=== PATIENT | male | born 1965 | race Caucasian/White ===

== ENCOUNTER 2016-12-02 18:43 | Emergency (ER) | payer BC, OTHER, SELFPAY ==
[~2016-12-02] VITALS: Ht 172.7 cm; Wt 76.7 kg
[2016-12-02 18:44] VITALS: BP 135/66
[2016-12-02] MEDS ORDERED: IBUP-1022 PO (18:50)
[2016-12-02] MEDS ORDERED: AMOX875T PO (19:23)
[2016-12-02] MEDS ORDERED: NORCOTAB PO (19:23)
[2016-12-02] MEDS ORDERED: NORCO, ANEXSIA 5/325MG TABLET (HYDROcodone/ACETAMINOPHEN) PO ONE (19:30)
[2016-12-02] MEDS ORDERED: LIDOCAINE VISCOUS 2% SOLN 15ML UDC SSP ONE (19:30)
[2016-12-02] MEDS ORDERED: AMOXICILLIN 500 MG CAP PO ONE (19:30)
== END 2016-12-02 19:35 | disposition home or self-care (01) ==
LOC: M ED 18:43
DX: K04.7 Periapical abscess without sinus (principal); F17.200 Nicotine dependence, unspecified, uncomplicated; Z88.8 Allergy status to other drugs, medicaments and biological substances

== ENCOUNTER 2016-12-22 08:09 | Observation (INO) | payer OTHER ==
[~2016-12-22] VITALS: Ht 172.7 cm; Wt 75.7 kg
[~2016-12-22 08:09] MED LIST: AMOX875T PO; IBUP-1022 PO; NORCOTAB PO
[2016-12-22] MEDS ORDERED: ONDANSETRON 4MG/2ML VIAL (J2405) IV ONE (08:45)
[2016-12-22 09:10] LABS: BASO % 0.4 % (0.0-1.0); EOS # 0.2 K/mm3 (0.0-0.50); LARGE UNSTAINED CELL # 0.1 K/mm3 (0.0-0.4); LARGE UNSTAINED CELL % 1.4 % (0.0-4.0); LYMPH # 0.9 K/mm3 (1.5-4.5); LYMPH % 14.6 % (24.0-44.0); MEAN CORPUSCULAR HEMOGLOBIN 31.4 pg (27.0-33.0); MEAN CORPUSCULAR HGB CONC 34.8 g/dl (32.0-36.5); MEAN CORPUSCULAR VOLUME 90.3 fl (80.0-96.0); MONO # 0.5 K/mm3 (0.0-0.8); MONO % 7.5 % (0.0-5.0); NEUTROPHILS # 4.6 K/mm3 (1.8-7.7); NEUTROPHILS % 72.1 % (36.0-66.0); PLATELET COUNT, AUTOMATED 159 k/mm3 (150-450); RED CELL DISTRIBUTION WIDTH 12.3 % (11.5-14.5); WHITE BLOOD COUNT 6.4 K/mm3 (4.0-10.0)
[2016-12-22] MEDS: NS 1,000 ML IV SCH ×5 (09:12→23:57)
[2016-12-22 09:42] LABS: ALBUMIN 3.7 GM/DL (3.2-5.2); ALBUMIN/GLOBULIN RATIO 1.19 (1.00-1.93); ALKALINE PHOSPHATASE 110 U/L (45-117); ALT/SGPT 23 U/L (12-78); ANION GAP 7 MEQ/L (8-16); AST/SGOT 13 U/L (15-37); BILIRUBIN,DIRECT < 0.1 MG/DL (0.0-0.2); BILIRUBIN,TOTAL 0.2 MG/DL (0.2-1.0); BLOOD UREA NITROGEN 15 MG/DL (7-18); CALCIUM LEVEL 8.9 MG/DL (8.5-10.1); CARBON DIOXIDE LEVEL 29 MEQ/L (21-32); CHLORIDE LEVEL 107 MEQ/L (98-107); CREATININE FOR GFR 0.89 MG/DL (0.70-1.30); GLOMERULAR FILTRATION RATE > 60.0 (>56); GLUCOSE, FASTING 114 MG/DL (70-105); POTASSIUM SERUM 4.4 MEQ/L (3.5-5.1); SODIUM LEVEL 143 MEQ/L (136-145); TOTAL PROTEIN 6.8 GM/DL (6.4-8.2)
--- NOTE | 2016-12-22 10:06 | REP ---
ABDOMEN, FLAT UPRIGHT PA CHEST, THREE VIEWS: HISTORY: Abdomen pain. A small amount of air is present in small and large intestine. There are no air fluid levels or dilated loops of intestine. There is no pneumoperitoneum. The lungs are clear. IMPRESSION: Nonspecific bowel gas pattern. Signed by Ross Henriquez MD 12/22/2016 10:09 A
[2016-12-22] MEDS: MORPHINE 4 MG/ML 1ML SYRINGE IV PRN ×2 (10:39→11:28)
[2016-12-22] MEDS ORDERED: ISOVUE-370 76% 100ML VIAL (Q9967) As Ordered ONE (12:08)
--- NOTE | 2016-12-22 12:21 | REP ---
REASON: Elevated lipase. COMPARISON EXAM: None. Multiple sonographic images of the liver show the hepatic and parenchymal echo pattern to be within normal limits. There are no cystic or solid masses. There is no evidence of intrahepatic or extrahepatic ductal dilatation. The common bile duct measures between 4 and 5 mm. Multiple ultrasonographic images of the gallbladder show no gross abnormalities. There is no pericholecystic edema. There are no choleliths. There is no abnormal gallbladder wall thickening. The pancreas could not be imaged secondary to the patient's intestinal gas pattern. The imaged portion of the right kidney is within normal limits. IMPRESSION: Negative right upper quadrant ultrasound examination as described above, however, the pancreas could not be imaged due to the patient's intestinal gas pattern. If pancreatitis is a clinical concern then contrast enhanced CT examination of the abdomen and pelvis is recommended. Signed by Sam Chen DO 12/22/2016 04:57 P
--- NOTE | 2016-12-22 12:55 | REP ---
CT ABDOMEN AND PELVIS WITH IV CONTRAST: 12/22/2016. Comparison: Gallbladder ultrasound and acute abdominal series earlier this date. Clinical history: Pancreatitis. Technique: The patient had bolus of 100 mL Isovue 370 scanning through the abdomen and pelvis with coronal and sagittal reconstructions. Findings: CT abdomen: Lung bases are clear. The heart is not enlarged. There is no pericardial thickening or effusion and no hiatal hernia. The liver, spleen, gallbladder and adrenal glands were normal. Stomach with some retained fluid. Pancreas shows peripancreatic infiltration of fat along the head, neck, body and tail region. Some stranding along the anterior margin of Gerota's fascia on both sides of the abdomen. There is trace amount of thickening of the lateral coronal fascia on the right compared to left. Lung window review of all CT slices shows no perforation, abscess or free air. There is no visible calcified gallstone, common duct or pancreatic calcification. The aorta is without aneurysm. No periaortic or retroperitoneal pathologic sized lymphadenopathy. Kidneys show function without obstruction, stone, mass or cyst. Colon and small bowel loops grossly intact without dilatation or obstruction. No acute inflammatory process in the bowel. Bone windows show lumbar and lower thoracic spine without compression deformity or destructive lesion. CT pelvis: Bony pelvis, hips, sacrum, and SI joints grossly intact. Bladder without stone, mass or extrinsic mass effect. It is underfilled and wall thickness cannot be judged. A few calcifications in the prostate. Distal left colon, sigmoid and rectum intact. Small bowel loops in the pelvis intact. No inflammatory changes about bowel loops. The appendix is seen and normal. No ventral or inguinal hernia or inguinal adenopathy. Impression: 1. Evidence of diffuse inflammatory changes about the pancreas with edema in the peripancreatic fat with some small amounts of fluid tracking along the Gerota's fascia right more than left. No abscess or perforation. Mass or generalized ascites. No adenopathy. 2. Liver, spleen, kidneys, adrenal gland and bowel loops unremarkable. 3. No other significant finding. Signed by Nicholas Roque MD 12/22/2016 07:08 P
[2016-12-22] MEDS ORDERED: HYDROmorphone HCL 1 MG/ML SYRINGE (J1170) IV PRN (13:00)
--- NOTE | 2016-12-22 13:57 | HPEPDOC ---
Medical History and Physical Date of Admission 12/22/16 History and Physical ATTENDING: Dr. Mari PCP: Dr Griffin CC: Abdominal pain HPI: 51 yo M who had been in his usual state of health until this morning. He states he had sudden onset of upper abdominal discomfort which he states was severe in nature. It was achy and radiating through to his back. He denies any nausea or vomiting. No fevers or chills. No diarrhea or constipation. He states his pain has improved since receiving pain medications in the emergency department and is currently 2/10. He states he does have a poor diet, he tends to eat a lot of fried foods and greasy foods. Yesterday he had 2 whoppers from [employer]. He states over the weekend he had approximately 18 beers on Tuesday evening. He was most recently seen in the emergency department 12/02/16 related to dental abscess and was treated with amoxicillin. He states his symptoms resolved. Denies any weakness, fatigue, GREEN, CP, SOB, cough, palpitations. Upon presentation to the hospital the patient was found to have pancreatitis, thus the hospitalist team was consulted. PMHx: Tobacco use PSHX: Denies SOCHX: Resides in: [place] Marital Status: Kids: 4 Employment: guest services manager Tobacco use: One pack per day ETOH: 12-24 beers on weekends Illicit Drugs: Denies Recent travel: Denies Advanced directives: Denies FAMHX: Mother: Alive, diabetes, hypertension Father: Alive, diabetes, CAD Siblings: One brother, one half sister Alive, well Children: 3 children Alive, well. One son at 17 unknown cause. Unexpected deaths due to medical reasons: None. ROS: As noted in HPI, otherwise 11pt ROS of systems reviewed and unremarkable. PE: GEN: 51 yo M, appears stated age. Well-nourished, well developed. No acute distress. Alert and oriented x 3. Pleasant, interactive. HEENT: Normocephalic, atraumatic. Pupils are equal, round, and reactive to light. Extraocular movements are intact. No nystagmus appreciated. Sclera are nonicteric. Conjunctiva without injection. Nose midline. Nasal turbinates without bogginess. No facial asymmetry. Moist mucous membranes. Dentition fair. Pharynx pink and moist, no cobblestoning. Neck supple, trachea midline. No lymphadenopathy or thyromegaly appreciated. CHEST: Regular rate and rhythm, +S1, +S2 LUNGS: Clear to auscultation bilaterally. No wheezes, rales, or rhonchi. Breathing appears symmetric and easy. Patient is speaking in full sentences. No accessory muscle use. ABD: Flat, soft, mild tenderness in the epigastric area, non-distended. +Bowel sounds throughout. No rebound or guarding. No costovertebral angle tenderness. EXT: Pulses 2+ bilaterally dorsalis pedis and radial. No lower extremity edema appreciated. SKIN: [place], dry, warm. Capillary refill <2sec. No rashes. NEURO: Alert and oriented x 3. Cranial nerves III-XII are intact. No focal deficits appreciated. AXR: Nonspecific bowel gas pattern. GB U/S Negative right upper quadrant ultrasound examination as described above, however , the pancreas could not be imaged due to the patient's intestinal gas pattern. If pancreatitis is a clinical concern then contrast enhanced CT examination of the abdomen and pelvis is recommended. CT: A/P 1. Evidence of diffuse inflammatory changes about the pancreas with edema in the peripancreatic fat with some small amounts of fluid tracking along the Gerota's fascia right more than left. No abscess or perforation. Mass or generalized ascites. No adenopathy. 2. Liver, spleen, kidneys, adrenal gland and bowel loops unremarkable. 3. No other significant finding. Lipase 39,340 A&P: 51 yo M who had been in his usual state of health until this morning. He states he had sudden onset of upper abdominal discomfort which he states was severe in nature. It was achy and radiating through to his back. He denies any nausea or vomiting. No fevers or chills. No diarrhea or constipation. He states his pain has improved since receiving pain medications in the emergency department and is currently 07/02. 1. The patient will be admitted to / for at least [address] Mari' s service. Pt is discussed with Dr Calhoun. 2. Acute Pancreatitis. Nothing by mouth. IV fluids NS at 200 mL per hour. Pain control. IV Zofran as needed. Monitor CBC/CMP/Lipase in AM. Pt states he has not eaten today, will add Lipid profile to labs. Add LDH. [place] Criteria 0/5. 3. Tobacco use. NicoDerm patch. 4. H/O alcohol use. Pt states he usually only consumes alcohol on weekends 1-2 days. DVT prophylaxis. Lovenox SQ. The patient is a full code Vital Signs Vital Signs Date Time Temp Pulse Resp B/P (MAP) Pulse Ox O2 Delivery O2 Flow Rate FiO2 12/22/16 13:38 68 132/76 (94) 12/22/16 13:05 14 12/22/16 12:38 97 12/22/16 08:20 97.8 Room Air Laboratory Data Labs 24H Laboratory Tests 2 12/22/16 09:00: White Blood Count 6.4, Red Blood Count 5.34, Hemoglobin 16.8, Hematocrit 48.2, Mean Corpuscular Volume 90.3, Mean Corpuscular Hemoglobin 31.4, Mean Corpuscular Hemoglobin Concent 34.8, Red Cell Distribution Width 12.3, Platelet Count 159, Neutrophils (%) (Auto) 72.1H, Lymphocytes (%) (Auto) 14.6L, Monocytes (%) (Auto) 7.5H, Eosinophils (%) (Auto) 4.0H, Basophils (%) (Auto) 0.4 , Neutrophils # (Auto) 4.6, Lymphocytes # (Auto) 0.9L, Monocytes # (Auto) 0.5, Eosinophils # (Auto) 0.2, Basophils # (Auto) 0.0, Large Unclassified Cells % 1.4 , Large Unclassified Cells # 0.1, Anion Gap 7L, Glomerular Filtration Rate > 60.0, Calcium Level 8.9, Aspartate Amino Transf (AST/SGOT) 13L, Alanine Aminotransferase (ALT/SGPT) 23, Alkaline Phosphatase 110, Total Bilirubin 0.2, Direct Bilirubin < 0.1, Total Protein 6.8, Albumin 3.7, Albumin/Globulin Ratio 1.19, Lipase 50997A CBC/BMP Laboratory Tests 12/22/16 09:00 Red Blood Count 5.34, Mean Corpuscular Volume 90.3, Mean Corpuscular Hemoglobin 31.4, Mean Corpuscular Hemoglobin Concent 34.8, Red Cell Distribution Width 12.3 , Neutrophils (%) (Auto) 72.1 H, Lymphocytes (%) (Auto) 14.6 L, Monocytes (%) ( Auto) 7.5 H, Eosinophils (%) (Auto) 4.0 H, Basophils (%) (Auto) 0.4, Neutrophils # (Auto) 4.6, Lymphocytes # (Auto) 0.9 L, Monocytes # (Auto) 0.5, Eosinophils # (Auto) 0.2, Basophils # (Auto) 0.0 Home Medications No Active Prescriptions or Reported Meds Allergies Coded Allergies: Prednisone (Verified Allergy, Intermediate, hives, 12/02/16) Cece Dejesus Dec 22, 2016 13:56
[2016-12-22] MEDS ORDERED: ACETAMINOPHEN TAB 650MG DOSE (2X325MG) PO PRN (14:00)
[2016-12-22] MEDS ORDERED: MORPHINE 2 MG/ML 1ML SYRINGE IV PRN (14:00)
[2016-12-22] MEDS ORDERED: ONDANSETRON 4MG/2ML VIAL (J2405) IV PRN (14:00)
[2016-12-22] MEDS ORDERED: PERCOCET 5MG/325MG TAB PO PRN (14:00)
[2016-12-22 15:15] LABS: CHOLESTEROL LEVEL 161 MG/DL (<200); TRIGLYCERIDES LEVEL 129 MG/DL (<150)
[2016-12-22 16:00] VITALS: BP 145/85
[2016-12-22] MEDS: NICOTINE 21MG/24HR 1 EA TRANSDERMAL TD SCH (16:18)
[2016-12-22 20:00] VITALS: BP 130/71
[2016-12-23] VITALS: BP 135/72
[2016-12-23] MEDS: NS 1,000 ML IV SCH ×3 (04:57→20:34)
[2016-12-23 06:52] LABS: BASO % 0.2 % (0.0-1.0); EOS # 0.3 K/mm3 (0.0-0.50); EOS % 3.8 % (0.0-3.0); LARGE UNSTAINED CELL # 0.1 K/mm3 (0.0-0.4); LARGE UNSTAINED CELL % 1.4 % (0.0-4.0); LYMPH # 1.3 K/mm3 (1.5-4.5); LYMPH % 16.6 % (24.0-44.0); MEAN CORPUSCULAR HEMOGLOBIN 31.1 pg (27.0-33.0); MEAN CORPUSCULAR HGB CONC 34.2 g/dl (32.0-36.5); MEAN CORPUSCULAR VOLUME 90.8 fl (80.0-96.0); MONO # 0.5 K/mm3 (0.0-0.8); MONO % 7.5 % (0.0-5.0); NEUTROPHILS # 4.9 K/mm3 (1.8-7.7); NEUTROPHILS % 70.5 % (36.0-66.0); PLATELET COUNT, AUTOMATED 130 k/mm3 (150-450); RED CELL DISTRIBUTION WIDTH 12.7 % (11.5-14.5)
[2016-12-23 07:09] LABS: ALBUMIN 3.1 GM/DL (3.2-5.2); ALBUMIN/GLOBULIN RATIO 1.19 (1.00-1.93); ALKALINE PHOSPHATASE 97 U/L (45-117); ALT/SGPT 16 U/L (12-78); ANION GAP 7 MEQ/L (8-16); AST/SGOT 9 U/L (15-37); BILIRUBIN,TOTAL 0.5 MG/DL (0.2-1.0); BLOOD UREA NITROGEN 6 MG/DL (7-18); CARBON DIOXIDE LEVEL 28 MEQ/L (21-32); CHLORIDE LEVEL 110 MEQ/L (98-107); CREATININE FOR GFR 0.69 MG/DL (0.70-1.30); GLOMERULAR FILTRATION RATE > 60.0 (>56); GLUCOSE, FASTING 80 MG/DL (70-105); POTASSIUM SERUM 4.3 MEQ/L (3.5-5.1); SODIUM LEVEL 145 MEQ/L (136-145); TOTAL PROTEIN 5.7 GM/DL (6.4-8.2)
[2016-12-23 08:00] VITALS: BP 126/76
[2016-12-23] MEDS: NICOTINE 21MG/24HR 1 EA TRANSDERMAL TD SCH (08:06)
[2016-12-23] MEDS: ENOXAPARIN 40 MG/0.4 ML SYRINGE (J1650) SC SCH (08:08)
--- NOTE | 2016-12-23 14:33 | IPNPDOC ---
Date Seen The patient was seen on 12/23/16. Progress Note Hospitalist Progress Note Subjective: Patient states that he feels much better, he is not having any vomiting, and his abdominal pain is almost entirely gone. He is hungry, and interested in eating Objective: Physical Exam: Vitals: Vital Sign - Last 24 Hours 12/22/16 12/22/16 12/22/16 12/22/16 14:38 14:53 15:08 15:23 Pulse 60 62 68 60 Resp 16 B/P (MAP) 134/78 (96) 126/80 (95) 12/22/16 12/22/16 12/22/16 12/22/16 15:38 15:49 16:00 19:10 Temp 98.3 98.6 98.6 Pulse 62 62 62 Resp 14 18 18 B/P (MAP) 133/63 (86) 145/85 (105) 145/85 Pulse Ox 97 97 O2 Delivery Room Air Room Air Room Air 12/22/16 12/22/16 12/23/16 12/23/16 19:20 20:00 00:00 08:00 Temp 99.3 99.7 99.0 Pulse 68 79 85 Resp 18 20 20 18 B/P (MAP) 130/71 (90) 135/72 (93) 126/76 (93) Pulse Ox 99 98 99 O2 Delivery Room Air Room Air Room Air General: Awake, alert, no acute distress HEENT: Normal cephalic, atraumatic, extraocular movements intact CV: Regular rate and rhythm Lungs: Clear to auscultation bilaterally Abd: Soft, nondistended, only very mild tenderness to palpation in the epigastrium and right upper quadrant, normal bowel sounds Extremities: No edema Neuro: Alert and oriented 3, normal speech Psych: Normal mood and affect Labs and Imaging: Laboratory Tests 12/23/16 06:31 Red Blood Count 4.72, Mean Corpuscular Volume 90.8, Mean Corpuscular Hemoglobin 31.1, Mean Corpuscular Hemoglobin Concent 34.2, Red Cell Distribution Width 12.7 , Neutrophils (%) (Auto) 70.5 H, Lymphocytes (%) (Auto) 16.6 L, Monocytes (%) ( Auto) 7.5 H, Eosinophils (%) (Auto) 3.8 H, Basophils (%) (Auto) 0.2, Neutrophils # (Auto) 4.9, Lymphocytes # (Auto) 1.3 L, Monocytes # (Auto) 0.5, Eosinophils # (Auto) 0.3, Basophils # (Auto) 0.0, Calcium Level 8.0 L, Aspartate Amino Transf (AST/SGOT) 9 L, Alanine Aminotransferase (ALT/SGPT) 16, Alkaline Phosphatase 97, Total Bilirubin 0.5 #, Total Protein 5.7 L, Albumin 3.1 L Assessment and Plan: 51-year-old male who smokes regularly and drinks heavily on weekends who presented to the emergency department with abdominal pain and is admitted with pancreatitis. 1. Pancreatitis: The patient's LFTs are within normal limits, and a CT of the abdomen and pelvis does not indicate any gallstone. The patient also has normal triglycerides. I suspect, that this pancreatitis is secondary to his weekend binge drinking. He reports that he has somewhere between 12-24 beers on weekend days, and he reports that this past weekend was no different. The patient has been advised that he should avoid this binge drinking. He currently is nothing by mouth with high rate IV fluids, but given the improvement in his clinical condition, we will advance his diet as tolerated, and decrease his IV fluids. Continue pain control. Of note, the has requested gastroenterology consult , however, we do not have any GI coverage this week, so given the rapid improvement in the patient's clinical condition, I've advised that if they are interested in gastroenterology services, that we arrange a follow-up as an outpatient. DVT prophylaxis: Lovenox Dispo: anticipate home tomorrow if patient is able to tolerate a diet VS, I&O, 24H, James Vital Signs/I&O Vital Signs Date Time Temp Pulse Resp B/P (MAP) Pulse Ox O2 Delivery O2 Flow Rate FiO2 12/23/16 08:00 99.0 85 18 126/76 (93) 99 Room Air I&O- Last 24 Hours up to 6 AM 12/23/16 06:00 Intake Total 3350 ml Output Total 1025 ml Balance 2325 ml Laboratory Data 24H LABS Laboratory Tests 2 12/22/16 20:44: Urine Appearance CLEAR, Urine Color YELLOW, Urine pH 5.0, Urine Specific [place] 1.023, Urine Protein NEGATIVE, Urine Glucose (UA) NEGATIVE, Urine Ketones NEGATIVE, Urine Urobilinogen 0.2, Urine Bilirubin NEGATIVE, Urine Leukocyte Esterase NEGATIVE, Urine Blood NEGATIVE, Urine Nitrite NEGATIVE, Urine WBC (Auto) 0, Urine RBC (Auto) 2, Urine Hyaline Casts (Auto) 0, Urine Bacteria (Auto) NEGATIVE, Urine Squamous Epithelial Cells 0, Urine Mucus (Auto) SMALL, Urine Sperm (Auto) 12/23/16 06:31: White Blood Count 7.0, Red Blood Count 4.72, Hemoglobin 14.7#, Hematocrit 42.9, Mean Corpuscular Volume 90.8, Mean Corpuscular Hemoglobin 31.1, Mean Corpuscular Hemoglobin Concent 34.2, Red Cell Distribution Width 12.7, Platelet Count 130L, Neutrophils (%) (Auto) 70.5H, Lymphocytes (%) (Auto) 16.6L, Monocytes (%) (Auto) 7.5H, Eosinophils (%) (Auto) 3.8H, Basophils (%) (Auto) 0.2 , Neutrophils # (Auto) 4.9, Lymphocytes # (Auto) 1.3L, Monocytes # (Auto) 0.5, Eosinophils # (Auto) 0.3, Basophils # (Auto) 0.0, Large Unclassified Cells % 1.4 , Large Unclassified Cells # 0.1, Anion Gap 7L, Glomerular Filtration Rate > 60.0, Blood Urea Nitrogen 6#L, Creatinine 0.69L, Sodium Level 145, Potassium Level 4.3, Chloride Level 110H, Carbon Dioxide Level 28, Calcium Level 8.0L, Aspartate Amino Transf (AST/SGOT) 9L, Alanine Aminotransferase (ALT/SGPT) 16, Alkaline Phosphatase 97, Total Bilirubin 0.5#, Total Protein 5.7L, Albumin 3.1L , Albumin/Globulin Ratio 1.19, Lipase 4538H CBC/BMP Laboratory Tests 12/23/16 06:31 Red Blood Count 4.72, Mean Corpuscular Volume 90.8, Mean Corpuscular Hemoglobin 31.1, Mean Corpuscular Hemoglobin Concent 34.2, Red Cell Distribution Width 12.7 , Neutrophils (%) (Auto) 70.5 H, Lymphocytes (%) (Auto) 16.6 L, Monocytes (%) ( Auto) 7.5 H, Eosinophils (%) (Auto) 3.8 H, Basophils (%) (Auto) 0.2, Neutrophils # (Auto) 4.9, Lymphocytes # (Auto) 1.3 L, Monocytes # (Auto) 0.5, Eosinophils # (Auto) 0.3, Basophils # (Auto) 0.0, Calcium Level 8.0 L, Aspartate Amino Transf (AST/SGOT) 9 L, Alanine Aminotransferase (ALT/SGPT) 16, Alkaline Phosphatase 97, Total Bilirubin 0.5 #, Total Protein 5.7 L, Albumin 3.1 L DONIS WOODS Dec 23, 2016 14:33
[2016-12-23] MEDS: PERCOCET 5MG/325MG TAB PO PRN ×2 (15:09→20:34)
[2016-12-23 16:00] VITALS: BP 126/72
[2016-12-23 20:00] VITALS: BP 127/72
[2016-12-24] VITALS: BP 104/56
[2016-12-24] MEDS: NS 1,000 ML IV SCH (07:11)
[2016-12-24 08:00] VITALS: BP 120/77
[2016-12-24] MEDS: NICOTINE 21MG/24HR 1 EA TRANSDERMAL TD SCH (08:28)
[2016-12-24 08:29] LABS: BASO % 0.5 % (0.0-1.0); EOS # 0.4 K/mm3 (0.0-0.50); EOS % 6.1 % (0.0-3.0); LARGE UNSTAINED CELL # 0.1 K/mm3 (0.0-0.4); LARGE UNSTAINED CELL % 1.6 % (0.0-4.0); LYMPH # 1.2 K/mm3 (1.5-4.5); LYMPH % 19.1 % (24.0-44.0); MEAN CORPUSCULAR HEMOGLOBIN 30.2 pg (27.0-33.0); MEAN CORPUSCULAR HGB CONC 33.4 g/dl (32.0-36.5); MEAN CORPUSCULAR VOLUME 90.5 fl (80.0-96.0); MONO # 0.5 K/mm3 (0.0-0.8); MONO % 7.6 % (0.0-5.0); NEUTROPHILS # 3.8 K/mm3 (1.8-7.7); NEUTROPHILS % 65.1 % (36.0-66.0); PLATELET COUNT, AUTOMATED 157 k/mm3 (150-450); RED CELL DISTRIBUTION WIDTH 12.6 % (11.5-14.5); WHITE BLOOD COUNT 5.8 K/mm3 (4.0-10.0)
[2016-12-24] MEDS: ENOXAPARIN 40 MG/0.4 ML SYRINGE (J1650) SC SCH (08:30)
[2016-12-24 08:43] LABS: ALBUMIN/GLOBULIN RATIO 1.03 (1.00-1.93); ALKALINE PHOSPHATASE 90 U/L (45-117); ALT/SGPT 17 U/L (12-78); ANION GAP 8 MEQ/L (8-16); AST/SGOT 11 U/L (15-37); BILIRUBIN,TOTAL 0.4 MG/DL (0.2-1.0); BLOOD UREA NITROGEN 6 MG/DL (7-18); CALCIUM LEVEL 8.6 MG/DL (8.5-10.1); CARBON DIOXIDE LEVEL 28 MEQ/L (21-32); CHLORIDE LEVEL 109 MEQ/L (98-107); CREATININE FOR GFR 0.71 MG/DL (0.70-1.30); GLOMERULAR FILTRATION RATE > 60.0 (>56); GLUCOSE, FASTING 91 MG/DL (70-105); MAGNESIUM LEVEL 2.2 MG/DL (1.8-2.4); POTASSIUM SERUM 4.2 MEQ/L (3.5-5.1); SODIUM LEVEL 145 MEQ/L (136-145); TOTAL PROTEIN 5.9 GM/DL (6.4-8.2)
[2016-12-24] MEDS: PERCOCET 5MG/325MG TAB PO PRN (12:35)
[2016-12-24] MEDS ORDERED: NICO21PAT TD (13:47)
--- NOTE | 2016-12-25 14:25 | DS.PDOC ---
Discharge Summary General Date of Admission Dec 22, 2016 at 14:36 Date of Discharge 12/24/2016 Discharge Summary DISCHARGE SUMMARY DATE OF ADMISSION: 12/22/2016 DATE OF DISCHARGE: 12/24/2016 PRIMARY CARE PHYSICIAN: Dr. Griffin DISCHARGE DIAGNOS(E)S: Acute alcoholic pancreatitis Tobacco abuse HPI & HOSPITAL COURSE: 51-year-old male who smokes regularly and drinks heavily on weekends who presented to the emergency department with abdominal pain and is admitted with pancreatitis. 1. Pancreatitis: The patient's LFTs are within normal limits, and a CT of the abdomen and pelvis does not indicate any gallstone. The patient also has normal triglycerides. I suspect, that this pancreatitis is secondary to his weekend binge drinking. He reports that he has somewhere between 12-24 beers on weekend days, and he reports that this past weekend was no different. The patient has been advised that he should avoid this binge drinking. With traditional treatment, he improved clinically and was pain free and tolerating a diet on the day of discharge. Of note, the has requested gastroenterology consult, however, we do not have any GI coverage this week, so given the rapid improvement in the patient's clinical condition, I have offered that if they are interested in gastroenterology services, that we arrange a follow-up as an outpatient. 2. Tobacco abuse: The patient was counseled on tobacco cessation; he has requested nicotine patches at discharge, which we are happy to prescribe to him. DVT prophylaxis: Lovenox PHYSICAL EXAMINATION ON DISCHARGE: VITAL SIGNS: Vital Signs Date Time Temp Pulse Resp B/P (MAP) Pulse Ox O2 Delivery O2 Flow Rate FiO2 12/24/16 13:05 16 12/24/16 08:00 98.7 55 120/77 (91) 97 Room Air General: Awake, alert, no acute distress HEENT: Normal cephalic, atraumatic, extraocular movements intact CV: Regular rate and rhythm Lungs: Clear to auscultation bilaterally Abd: Soft, nondistended, no TTP, normal bowel sounds Extremities: No edema Neuro: Alert and oriented 3, normal speech Psych: Normal mood and affect DISPOSITION: Home DISCHARGE INSTRUCTIONS: PCP Dr. Griffin within 1 week. Do not drink any alcohol. At the patient's request, we have referred him to Dr. Espinal of gastroenterology for an outpatient follow-up. If symptoms return, or if you experience worsening of your symptoms, please call your doctor or return to the emergency department. ITEMS THAT NEED OUTPATIENT FOLLOWUP: None Patient was seen and examined by me on the day of discharge, and I spent a total time of less than 30 minutes on this discharge. Vital Signs/I&Os Vital Signs Date Time Temp Pulse Resp B/P (MAP) Pulse Ox O2 Delivery O2 Flow Rate FiO2 12/24/16 13:05 16 12/24/16 08:00 98.7 55 120/77 (91) 97 Room Air I&O- Last 24 Hours up to 6 AM 12/25/16 06:00 Intake Total 120 ml Output Total 950 ml Balance -830 ml Discharge Medications Scheduled Nicotine (Nicotine Transdermal Syst) 21 Mg/24 Hr Dis, 1 PATCH TD DAILY Allergies Coded Allergies: Prednisone (Verified Allergy, Intermediate, hives, 12/02/16) DONIS WOODS Dec 25, 2016 14:25
== END 2016-12-24 15:00 | disposition home or self-care (01) ==
LOC: M ED 08:09 → M ED INP 14:36 → M PED 16:05
PROVIDERS: ADMIT Internal Medicine; ATTEND Hospitalist
DX: K85.20 Alcohol induced acute pancreatitis without necrosis or infection (principal); Z72.0 Tobacco use; R10.10 Upper abdominal pain, unspecified; Z88.8 Allergy status to other drugs, medicaments and biological substances
CPT/HCPCS: 36415; 74022; 74177; 76705; 80048; 80053; 80061; 80076; 81001; 83690; 83735; 85025; 93041; 96361; 96374; 96375; 96376; 99285; J1170; J2405; Q9967

== ENCOUNTER 2019-07-04 01:53 | Inpatient (IN) | payer OTHER, SELFPAY ==
[~2019-07-04] VITALS: Ht 172.7 cm; Wt 81.0 kg
[~2019-07-04 01:53] MED LIST changes: +HYDR-3715 PO; +NICO21PAT TD; -NORCOTAB PO
[2019-07-04 02:35] LABS: HEMATOCRIT 48.9 % (42.0-52.0); HEMOGLOBIN 15.8 g/dl (13.5-17.5); MEAN CORPUSCULAR HEMOGLOBIN 29.5 pg (27.0-33.0); MEAN CORPUSCULAR HGB CONC 32.3 g/dl (32.0-36.5); MEAN CORPUSCULAR VOLUME 91.2 fl (80.0-96.0); PLATELET COUNT, AUTOMATED 167 10^3/uL (150-450); RED BLOOD COUNT 5.36 10^6/uL (4.30-6.10); WHITE BLOOD COUNT 8.6 10^3/uL (4.0-10.0)
[2019-07-04 03:17] LABS: ALBUMIN 3.9 GM/DL (3.2-5.2); ALT/SGPT 36 U/L (12-78); BILIRUBIN,TOTAL 0.3 MG/DL (0.2-1.0); BLOOD UREA NITROGEN 14 MG/DL (7-18); CALCIUM LEVEL 9.1 MG/DL (8.5-10.1); CARBON DIOXIDE LEVEL 29 MEQ/L (21-32); CHLORIDE LEVEL 106 MEQ/L (98-107); CK-MB VALUE MASS 1.4 NG/ML (<3.6); CPK CREATINE PHOSPHOKINASE 93 U/L (39-308); CREATININE FOR GFR 1.04 MG/DL (0.70-1.30); GLOMERULAR FILTRATION RATE > 60.0 (>56); GLUCOSE, FASTING 107 MG/DL (70-100); MB/CK RELATIVE INDEX 1.51 (< OR =4); SODIUM LEVEL 142 MEQ/L (136-145); TOTAL PROTEIN 6.9 GM/DL (6.4-8.2); TROPONIN I < 0.02 NG/ML (< 0.10)
[2019-07-04 03:35] LABS: LIPASE 41409 U/L (73-393)
[2019-07-04] MEDS ORDERED: NS 1,000 ML IV ONE (04:00)
[2019-07-04] MEDS ORDERED: ONDANSETRON 4MG/2ML VIAL (J2405) IV ONE (04:00)
[2019-07-04] MEDS ORDERED: KETOROLAC 30 MG/ML VIAL (J1885) IV ONE (04:00)
[2019-07-04] MEDS ORDERED: ISOVUE-370 76% 100ML VIAL (Q9967) As Ordered ONE (04:02)
--- NOTE | 2019-07-04 04:50 | REPVR ---
PROCEDURE INFORMATION: Exam: CT Abdomen And Pelvis With Contrast Exam date and time: 07/04/2019 3:58 AM Age: 54 years old Clinical indication: Abdominal pain; Generalized; Additional info: Gen abd pain TECHNIQUE: Imaging protocol: Computed tomography of the abdomen and pelvis with intravenous contrast. Radiation optimization: All CT scans at this facility use at least one of these dose optimization techniques: automated exposure control; mA and/or kV adjustment per patient size (includes targeted exams where dose is matched to clinical indication); or iterative reconstruction. Contrast material: ISO; Contrast volume: 100 ml; Contrast route: AC; COMPARISON: CT ABD/PEL W/IV CONTRAST ONLY 12/22/2016 12:09 PM FINDINGS: Liver: Normal. No mass. Gallbladder and bile ducts: Normal. No calcified stones. No ductal dilation. Pancreas: Mild peripancreatic edema. No pancreatic necrosis. No pancreatic ductal dilatation. No pseudocyst. Spleen: Normal. No splenomegaly. Adrenals: Normal. No mass. Kidneys and ureters: Normal. No hydronephrosis. Stomach and bowel: Unremarkable. No obstruction. No mucosal thickening. Appendix: Appendix is normal. Intraperitoneal space: Unremarkable. No free air. No significant fluid collection. Vasculature: Mild atherosclerotic disease. No aortic aneurysm. Lymph nodes: Unremarkable. No enlarged lymph nodes. Bladder: Unremarkable as visualized. Reproductive: Prostate is mildly enlarged. Bones/joints: Unremarkable. No acute fracture. Soft tissues: Small umbilical hernia containing fat. There is no evidence of strangulation. IMPRESSION: 1. Mild peripancreatic edema. Consistent with acute pancreatitis. 2. Additional findings as described. Electronically signed by: Luis Baumann On 07/04/2019 04:50:05 AM
[2019-07-04] MEDS ORDERED: MORPHINE 4 MG/ML 1ML VIAL/SYRINGE (J2270) As Ordered ONE (05:10)
[2019-07-04] MEDS ORDERED: MORPHINE 4 MG/ML 1ML VIAL/SYRINGE (J2270) IV ONE (05:15)
[2019-07-04] MEDS ORDERED: LR 1,000 ML IV SCH (05:19)
[2019-07-04] MEDS ORDERED: ONDANSETRON 4MG/2ML VIAL (J2405) IV PRN ×2 (05:30→17:00)
[2019-07-04] MEDS ORDERED: KETOROLAC 30 MG/ML VIAL (J1885) IV PRN (05:30)
--- NOTE | 2019-07-04 05:31 | HPEPDOC ---
General Date of Admission 07/04/19 Date of Service: Jul 04, 2019 Chief Complaint The patient is a 54-year-old male admitted with a reason for visit of Abd Pain. Source: Patient Exam Limitations: No limitations Timing/Duration: 4-6 hours Severity: Severe History of Present Illness Patient is 54 years old male with history of previous acute pancreatitis presented hospital with epigastric and left upper quadrant pain. Patient stated that around 4-5 hours ago he developed severe left upper and epigastric pain associated with nausea. Patient denied any recent alcohol intake. In emergency room patient was found to have lipase level around 41,000. CT abdomen and pelvis showed Mild peripancreatic edema. Consistent with acute pancreatitis. No common bile duct dilatation. Patient denied fever, but has chills. Patient denies palpitations, chest pain, diarrhea or dysuria Home Medications No Active Prescriptions or Reported Meds Allergies Coded Allergies: prednisone (Verified Allergy, Unknown, 07/04/19) Past Medical History Medical History Acute pancreatitis Family History Mother had hypertension and diabetes Social History * Smoker: greater than 1 pack/day Alcohol: occationally Drugs: denies, marijuana (daily) A-FIB/CHADSVASC A-FIB History Current/History of A-Fib/PAF?: No Current PO Anticoag Therapy: No Review of Systems Constitutional: Reports: Chills, Malaise; Denies: Fever Eyes: Denies: Pain ENT: Denies: Head Aches Skin: Denies: Rash, Lesions Pulmonary: Denies: Dyspnea, Cough Cardiovascular: Denies: Chest Pain Gastrointestinal: Reports: Nausea, Abdominal Pain Genitourinary: Denies: Dysuria Hematologic: Denies: Bruising Endocrine: Denies: Polydipsia, Polyphagia Musculoskeletal: Denies: Neck Pain Neurological: Denies: Weakness, Numbness Psych: Reports: Mood Normal Physical Examination General Exam: Positive: Alert Eye Exam: Positive: PERRLA ENT Exam: Positive: Atraumatic Neck Exam: Positive: Supple; Negative: JVD Chest Exam: Positive: Clear to auscultation Heart Exam: Positive: Rate Normal Telemetry: Positive: No significant arrhythmia Abdomen Exam: Positive: BS Hypoactive, Tenderness (epigastric and left upper quadrant tenderness); Negative: Normal bowel sounds Extremity Exam: Negative: Clubbing, Cyanosis Skin Exam: Positive: Nl turgor and temperature Neuro Exam: Positive: Strength at 5/5 X4 ext, Cranial Nerves 3-12 NL Psych Exam: Positive: Mental status NL Vital Signs Vital Signs Date Time Temp Pulse Resp B/P (MAP) Pulse Ox O2 Delivery O2 Flow Rate FiO2 07/04/19 05:13 16 Room Air 07/04/19 03:33 07/04/19 01:53 97.7 71 99 Laboratory Data Labs 24H Laboratory Tests 2 07/04/19 02:17: Nucleated Red Blood Cells % (auto) 0.0, Anion Gap 7L, Glomerular Filtration Rate > 60.0, Calcium Level 9.1, Total Bilirubin 0.3, Aspartate Amino Transf (AST/SGOT) 17, Alanine Aminotransferase (ALT/SGPT) 36, Alkaline Phosphatase 104, Total Creatine Kinase 93, Creatine Kinase MB 1.4, Creatine Kinase MB Relative Index 1.51, Troponin I < 0.02, Total Protein 6.9, Albumin 3.9, Albumin/Globulin Ratio 1.30, Lipase 42375A CBC/BMP Laboratory Tests 07/04/19 02:17 Assessment/Plan Patient is 54 years old male with history of previous acute pancreatitis presented hospital with epigastric and left upper quadrant pain. Patient stated that around 4-5 hours ago he developed severe left upper and epigastric pain associated with nausea. Patient denied any recent alcohol intake. In emergency room patient was found to have lipase level around 41,000. CT abdomen and pelvis showed Mild peripancreatic edema. Consistent with acute pancreatitis Problems (1) Acute pancreatitis Status: Acute Problem Text: Patient denied any recent alcohol intake Most likely idiopathic We will check level of TG, calcium, IgG4,KADEN Will check U tox for alcohol Aggressive IV hydration Nothing by mouth for now Pain management LORI ALEXIS DO Jul 04, 2019 05:31
[2019-07-04 06:11] LABS: CHOLESTEROL LEVEL 199 MG/DL (<200); CHOLESTEROL RISK RATIO 6.633 (<5); HDL CHOLESTEROL 30 MG/DL (>40); LDL CHOLESTEROL 111 MG/DL (<100); NON-HDL-C 169 MG/DL; TRIGLYCERIDES LEVEL 292 MG/DL (<150)
[2019-07-04 06:17] VITALS: BP 150/68
[2019-07-04] MEDS: PANTOPRAZOLE 40MG INJ (PROTONIX) (C9113) IV SCH (08:44)
[2019-07-04] MEDS: MORPHINE 2 MG/ML 1ML VIAL (J2270) IV SCH ×4 (08:44→20:21)
[2019-07-04] MEDS ORDERED: MORPHINE 2 MG/ML 1ML VIAL (J2270) IV SCH (09:00)
[2019-07-04] MEDS ORDERED: D5W/0.45% SODIUM CHLORIDE 1,000 ML IV SCH (09:51)
[2019-07-04] MEDS ORDERED: D5W/0.9% SODIUM CHLORIDE 1,000 ML IV SCH (09:51)
[2019-07-04] MEDS ORDERED: D5W 1,000 ML IV SCH (09:51)
[2019-07-04] MEDS: NS 1,000 ML IV SCH ×2 (10:24→21:58)
[2019-07-04] MEDS: ACETAMINOPHEN TAB 650MG DOSE (2X325MG) PO PRN (14:11)
--- NOTE | 2019-07-04 16:37 | IPNPDOC ---
Subjective Date Seen The patient was seen on 07/04/19. Subjective Chief Complaint/HPI Mr. Sanders is a 54 year old male who is admitted to the hospital due to acute pancreatitis. Pt has denied any recent precipitating events - including alcohol consumption. Pt stated that the only thing he has done out of the ordinary is have nachos. Pt stated he does not have a PCP or GI doctor; he has not had a medical provider for several years. Pt stated he is willing to be referred to a PCP on d/c. Mr. Sanders stated that he is much more comfortable today than yesterday. He has some mild upper abdominal pain, no nausea and vomiting. General: Denies: Chills, Night Sweats, Fatigue, Malaise, Normal Appetite Constitutional: Denies: Chills, Fever, Night Sweats Eyes: Denies: Pain ENT: Denies: Head Aches Skin: Reports: Lesions; Denies: Rash, Breakdown Pulmonary: Denies: Dyspnea, Cough Cardiovascular: Denies: Chest Pain, Palpitations, Orthopnea, Paroxysmal Noc. Dyspnea, Lt Headedness Gastrointestinal: Reports: Abdominal Pain; Denies: Nausea, Vomiting, Diarrhea, Constipation Genitourinary: Denies: Dysuria, Retention Hematologic: Denies: Bruising Musculoskeletal: Denies: Neck Pain, Back Pain, Joint Pain, Muscle Pain, Spasms Neurological: Denies: Weakness, Numbness, Change in speech, Confusion Psych: Reports: Mood Normal Objective Physical Examination General Exam: Positive: Alert, Cooperative, No Acute Distress Eye Exam: Positive: Conjunctiva & lids normal, EOMI; Negative: Sclera icteric ENT Exam: Positive: Atraumatic, Pharynx Normal, Tongue Midline; Negative: Mucous membr. moist/pink (mucus membranes dry) Neck Exam: Positive: Supple; Negative: JVD, thyromegaly Chest Exam: Positive: Clear to auscultation, Normal air movement Heart Exam: Positive: Rate Normal, Regular Rhythm, Normal S1, Normal S2; Negative: Gallops, Murmurs, Rubs Telemetry: Positive: No significant arrhythmia Abdomen Exam: Positive: BS Hypoactive, Soft, Tenderness (TTP RLQ no guarding ); Negative: Normal bowel sounds Extremity Exam: Negative: Clubbing, Cyanosis, Edema Skin Exam: Positive: Nl turgor and temperature Neuro Exam: Positive: Normal Speech Psych Exam: Positive: Mental status NL, Oriented x 3 Assessment /Plan Assessment Mr. Sanders is a 54 year old male who presented to the ED with epigastric and LUQ abdominal pain and nausea. Pt has a PMHx which includes: Pancreatitis. Pt denied any precipitating events - alcohol consumption, medication etc. Pt stated the only thing he did out of the ordinary was consume some homemade nachos. Pt had a lipase of 41,[address] ABD/PEL W/IV CONTRAST ONLY IMPRESSION: 1. Mild peripancreatic edema. Consistent with acute pancreatitis. 2. Additional findings as described. Acute pancreatitis - does not meet SIRS criteria; temp, HR, RR, WBC count WNL - IG4 and KADEN, Lactic Acid - pending - urine tox not completed. Will not re-order as pt has received aggressive fluid hydration and results will likely be unreliable. - Pain has improved significantly overnight, assessed x 2 today; reduce Morphine to 2mg q4hr, continue Toradol prn - Previously made NPO; advance with clear fluids if tolerated DVT Prophy: Heparin SQ Dispo: d/c home within 24-48 hrs with referral to establish care with PCP Plan/VTE VTE Prophylaxis Ordered?: Yes (Heparin ) VS, I&O, 24H, Fishbone Vital Signs/I&O Vital Signs Date Time Temp Pulse Resp B/P (MAP) Pulse Ox O2 Delivery O2 Flow Rate FiO2 07/04/19 13:15 16 Room Air 07/04/19 06:17 98.2 71 150/68 (95) 96 I&O- Last 24 Hours up to 6 AM 07/04/19 06:00 Intake Total 1000 ml Balance 1000 ml Laboratory Data 24H LABS Laboratory Tests 2 07/04/19 02:17: Nucleated Red Blood Cells % (auto) 0.0, Anion Gap 7L, Glomerular Filtration Rate > 60.0, Calcium Level 9.1, Total Bilirubin 0.3, Aspartate Amino Transf (AST/SGOT) 17, Alanine Aminotransferase (ALT/SGPT) 36, Alkaline Phosphatase 104, Total Creatine Kinase 93, Creatine Kinase MB 1.4, Creatine Kinase MB Relative Index 1.51, Troponin I < 0.02, Total Protein 6.9, Albumin 3.9, Albumin/Globulin Ratio 1.30, Triglycerides Level 292H, Total Cholesterol 199, LDL Cholesterol 111H, Non-HDL Cholesterol (LDL + VLDL) 169, Total HDL Cholesterol 30L, Cholesterol/HDL Ratio 6.633H, Lipase 10558I 07/04/19 08:05: CBC/BMP Laboratory Tests 07/04/19 02:17 MALIA SHETTY PA-C Jul 04, 2019 16:37
--- NOTE | 2019-07-04 20:07 | ECGEPIP ---
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
[2019-07-04] MEDS: HEPARIN SOD (PORCINE) 5000 UNITS/ML VIAL (J1644 PER 1000UNITS) SQ SCH (20:20)
[2019-07-04 22:00] VITALS: BP 118/67
[2019-07-05] MEDS: MORPHINE 2 MG/ML 1ML VIAL (J2270) IV SCH ×6 (01:56→20:37)
[2019-07-05 06:00] VITALS: BP 106/70
[2019-07-05] MEDS: ACETAMINOPHEN TAB 650MG DOSE (2X325MG) PO PRN (06:12)
[2019-07-05 06:18] LABS: BASO % 0.2 % (0.0-1.0); EOS # 0.3 10^3/uL (0.0-0.5); EOS % 3.6 % (0.0-3.0); HEMATOCRIT 41.5 % (42.0-52.0); LYMPH # 1.2 10^3/uL (1.5-5.0); LYMPH % 14.7 % (24.0-44.0); MEAN CORPUSCULAR HEMOGLOBIN 30.6 pg (27.0-33.0); MEAN CORPUSCULAR VOLUME 92.6 fl (80.0-96.0); MONO # 0.8 10^3/uL (0.0-0.8); MONO % 10.1 % (0.0-5.0); NEUTROPHILS # 5.8 10^3/uL (1.5-8.5); NEUTROPHILS % 71.2 % (36.0-66.0); PLATELET COUNT, AUTOMATED 126 10^3/uL (150-450); RED BLOOD COUNT 4.48 10^6/uL (4.30-6.10); WHITE BLOOD COUNT 8.1 10^3/uL (4.0-10.0)
[2019-07-05 06:27] LABS: HEMOGLOBIN 13.7 g/dl (13.5-17.5)
[2019-07-05 06:48] LABS: BLOOD UREA NITROGEN 8 MG/DL (7-18); CALCIUM LEVEL 8.1 MG/DL (8.5-10.1); CARBON DIOXIDE LEVEL 28 MEQ/L (21-32); CHLORIDE LEVEL 110 MEQ/L (98-107); CREATININE FOR GFR 0.85 MG/DL (0.70-1.30); GLOMERULAR FILTRATION RATE > 60.0 (>56); GLUCOSE, FASTING 86 MG/DL (70-100); LIPASE 3460 U/L (73-393); SODIUM LEVEL 143 MEQ/L (136-145)
[2019-07-05] MEDS: HEPARIN SOD (PORCINE) 5000 UNITS/ML VIAL (J1644 PER 1000UNITS) SQ SCH ×3 (08:53→20:38)
[2019-07-05] MEDS: PANTOPRAZOLE 40MG INJ (PROTONIX) (C9113) IV SCH (08:53)
[2019-07-05] MEDS ORDERED: NICOTINE 21MG/24HR 1 EA TRANSDERMAL TD SCH (09:00)
[2019-07-05 14:00] VITALS: BP 130/68
--- NOTE | 2019-07-05 14:04 | IPNPDOC ---
Text Note Date of Service The patient was seen on 07/05/19. NOTE Subjective Chief Complaint/HPI Mr. Sanders is a 54 year old male who is admitted to the hospital due to acute pancreatitis. Pt has denied any recent precipitating events - including alcohol consumption. Pt stated that the only thing he has done out of the ordinary is have nachos. His first episode was 2.5 years ago; Sx typically resolve more quickly than they have this time. Pt stated he does not have a PCP or GI doctor; he has not had a medical provider for several years. Pt stated he is willing to be referred to a PCP on d/c. Mr. Sanders has continued to improve. He has tolerated clear fluids without abd. pain/N/V. General: Denies: Chills, Night Sweats, Fatigue, Malaise, Normal Appetite Constitutional: Denies: Chills, Fever, Night Sweats Eyes: Denies: Pain ENT: Denies: Head Aches Skin: Reports: Lesions; Denies: Rash, Breakdown Pulmonary: Denies: Dyspnea, Cough Cardiovascular: Denies: Chest Pain, Palpitations, Orthopnea, Paroxysmal Noc. Dyspnea, Lt Headedness Gastrointestinal: Reports: Abdominal Pain; Denies: Nausea, Vomiting, Diarrhea, Constipation Genitourinary: Denies: Dysuria, Retention Hematologic: Denies: Bruising Musculoskeletal: Denies: Neck Pain, Back Pain, Joint Pain, Muscle Pain, Spasms Neurological: Denies: Weakness, Numbness, Change in speech, Confusion Psych: Reports: Mood Normal Objective Physical Examination General Exam: Positive: Alert, Cooperative, No Acute Distress Eye Exam: Positive: Conjunctiva & lids normal, EOMI; Negative: Sclera icteric ENT Exam: Positive: Atraumatic, Pharynx Normal, Tongue Midline; Neck Exam: Positive: Supple; Negative: JVD, thyromegaly Chest Exam: Positive: Clear to auscultation, Normal air movement Heart Exam: Positive: Rate Normal, Regular Rhythm, Normal S1, Normal S2; Negative: Gallops, Murmurs, Rubs Telemetry: Positive: No significant arrhythmia Abdomen Exam: Positive: BS Hypoactive, Soft, Tenderness (TTP RLQ); Negative: Normal bowel sounds Extremity Exam: Negative: Clubbing, Cyanosis, Edema Skin Exam: Positive: Nl turgor and temperature Neuro Exam: Positive: Normal Speech Psych Exam: Positive: Mental status NL, Oriented x 3 Assessment /Plan Assessment Mr. Sanders is a 54 year old male who presented to the ED with epigastric and LUQ abdominal pain and nausea. Pt has a PMHx which includes: Pancreatitis. Pt denied any precipitating events - alcohol consumption, medication etc. Pt stated the only thing he did out of the ordinary was consume some homemade nachos. Pt had a lipase of 41,[address] ABD/PEL W/IV CONTRAST ONLY IMPRESSION: 1. Mild peripancreatic edema. Consistent with acute pancreatitis. 2. Additional findings as described. Acute pancreatitis - does not meet SIRS criteria; temp, HR, RR, WBC count WNL - IG4 and KADEN, Lactic Acid - pending - urine tox not completed. Will not re-order as pt has received aggressive fluid hydration and results will likely be unreliable. - Lipase 41,490-3460 overnight - Pain has improved significantly overnight; Morphine reduced, continue Toradol prn - Advance with full fluids and then soft diet as tolerated DVT Prophy: Heparin SQ Dispo: d/c home within 24-48 hrs with referral to establish care with PCP who will refer the pt to GI. Pt stated his barrier to care is financial; he has received some information from the hospital about the insurance marketplace and plans to look into it. VS,Fishbone, I+O VS, Fishbone, I+O Laboratory Tests 07/05/19 05:19 Vital Signs Date Time Temp Pulse Resp B/P (MAP) Pulse Ox O2 Delivery O2 Flow Rate FiO2 07/05/19 09:17 18 Room Air 07/05/19 06:00 99.4 74 106/70 (82) 95 I&O- Last 24 Hours up to 6 AM 07/05/19 06:00 Intake Total 3581 ml Output Total 550 ml Balance 3031 ml MALIA SHETTY PA-C Jul 05, 2019 14:03
[2019-07-05 22:00] VITALS: BP 149/54
[2019-07-06 00:07] LABS: ANTINUCLEAR ANTIBODIES DIRECT Negative (Negative)
[2019-07-06] MEDS: MORPHINE 2 MG/ML 1ML VIAL (J2270) IV SCH ×2 (01:00→05:00)
[2019-07-06 06:00] VITALS: BP 127/68
[2019-07-06 06:07] LABS: BASO % 0.5 % (0.0-1.0); EOS # 0.5 10^3/uL (0.0-0.5); EOS % 5.7 % (0.0-3.0); HEMATOCRIT 42.3 % (42.0-52.0); LYMPH # 1.1 10^3/uL (1.5-5.0); LYMPH % 13.3 % (24.0-44.0); MEAN CORPUSCULAR HEMOGLOBIN 30.2 pg (27.0-33.0); MEAN CORPUSCULAR HGB CONC 33.1 g/dl (32.0-36.5); MEAN CORPUSCULAR VOLUME 91.4 fl (80.0-96.0); MONO % 11.6 % (0.0-5.0); NEUTROPHILS # 5.6 10^3/uL (1.5-8.5); NEUTROPHILS % 68.5 % (36.0-66.0); PLATELET COUNT, AUTOMATED 137 10^3/uL (150-450); RED BLOOD COUNT 4.63 10^6/uL (4.30-6.10); WHITE BLOOD COUNT 8.2 10^3/uL (4.0-10.0)
[2019-07-06 06:28] LABS: BLOOD UREA NITROGEN 6 MG/DL (7-18); CALCIUM LEVEL 8.4 MG/DL (8.5-10.1); CARBON DIOXIDE LEVEL 30 MEQ/L (21-32); CHLORIDE LEVEL 108 MEQ/L (98-107); CREATININE FOR GFR 0.83 MG/DL (0.70-1.30); GLOMERULAR FILTRATION RATE > 60.0 (>56); GLUCOSE, FASTING 95 MG/DL (70-100); LIPASE 478 U/L (73-393); POTASSIUM SERUM 3.9 MEQ/L (3.5-5.1); SODIUM LEVEL 142 MEQ/L (136-145)
[2019-07-06] MEDS ORDERED: OXYC1TAB23 PO (07:48)
[2019-07-06] MEDS ORDERED: PANT40TA3 PO (07:48)
--- NOTE | 2019-07-08 07:10 | DS.PDOC ---
Discharge Summary General Date of Admission Jul 04, 2019 at 05:19 Date of Discharge 07/06/19 Discharge Summary PROCEDURES PERFORMED DURING STAY: [None]. DISCHARGE DIAGNOSES: Acute pancreatitis second episode etiology yet undetermined. COMPLICATIONS/CHIEF COMPLAINT: Acute Pancreatitis. HISTORY OF PRESENT ILLNESS: See History and physical HOSPITAL COURSE: Assessment /Plan Assessment Mr. Sanders is a 54 year old male who presented to the ED with epigastric and LUQ abdominal pain and nausea. Pt has a PMHx which includes: Pancreatitis. Pt denied any precipitating events - alcohol consumption, medication etc. Pt stated the only thing he did out of the ordinary was consume some homemade nachos. Pt had a lipase of 41,[address] ABD/PEL W/IV CONTRAST ONLY IMPRESSION: 1. Mild peripancreatic edema. Consistent with acute pancreatitis. 2. Additional findings as described. Acute pancreatitis No history of significant alcohol intake, no gallstones, no recent features of viral infections Not on any prescription medication or erbal or finnish medications . no on any over the counter medications. IG4 and KADEN, negative, triglecerides not elevated. Will probably need ERCP to look into spincter of oddi Referral to Gi given. tolerating diet pain controlled with percocet. DISCHARGE MEDICATIONS: Please see below. ALLERGIES: Please see below. PHYSICAL EXAMINATION ON DISCHARGE: VITAL SIGNS: Please see below. General Exam: Positive: Alert, Cooperative, No Acute Distress Eye Exam: Positive: Conjunctiva & lids normal, EOMI; Negative: Sclera icteric ENT Exam: Positive: Atraumatic, Pharynx Normal, Tongue Midline; Neck Exam: Positive: Supple; Negative: JVD, thyromegaly Chest Exam: Positive: Clear to auscultation, Normal air movement Heart Exam: Positive: Rate Normal, Regular Rhythm, Normal S1, Normal S2; Negative: Gallops, Murmurs, Rubs Telemetry: Positive: No significant arrhythmia Abdomen Exam: Positive: BS normal, Soft, Nontender Extremity Exam: Negative: Clubbing, Cyanosis, Edema Skin Exam: Positive: Nl turgor and temperature Neuro Exam: Positive: Normal Speech Psych Exam: Positive: Mental status NL, Oriented x 3 LABORATORY DATA: Please see below. IMAGING: CT abd and pelvis with contrast: Mild peripancreatic edema. Consistent with acute pancreatitis. ACTIVITY: [As tolerated]. DIET: Low fat , low cholelesterol, DISPOSITION: Home, Self-Care. DISCHARGE INSTRUCTIONS: PMD in [address] Cornelius. DISCHARGE CONDITION: [Stable]. TIME SPENT ON DISCHARGE: 35 minutes. Vital Signs/I&Os Vital Signs Date Time Temp Pulse Resp B/P (MAP) Pulse Ox O2 Delivery O2 Flow Rate FiO2 07/06/19 06:00 97.0 101 19 127/68 (87) 96 07/05/19 22:00 Room Air Discharge Medications Scheduled Pantoprazole Sodium (Pantoprazole Sodium) 40 Mg Tablet., 1 TAB PO DAILY Scheduled PRN Oxycodone HCl/Acetaminophen (Oxycodone-Acetaminophen 5-325) 1 Each Tablet, 1 TAB PO TIDP PRN for pain Allergies Coded Allergies: prednisone (Verified Allergy, Unknown, 07/04/19) FABIANA BEVERLY MD Jul 08, 2019 07:10
== END 2019-07-06 08:36 | disposition home or self-care (01) | DRG 282 ==
LOC: M ED 01:53 → M ED INP 05:19 → ENRESERV 05:24 → M ED 05:50 → M MSPAV 06:17
PROVIDERS: ADMIT Internal Medicine; ATTEND Internal Medicine Nephrology
DX: K85.00 Idiopathic acute pancreatitis without necrosis or infection (principal); F17.200 Nicotine dependence, unspecified, uncomplicated; Z88.8 Allergy status to other drugs, medicaments and biological substances

== ENCOUNTER → 2021-02-06 | Outpatient (CLI) | payer OTHER ==
[~2021-02-06] MED LIST changes: +OXYC1TAB23 PO; +PANT40TA29 PO
== END ==
LOC: M RAD 16:03
PROVIDERS: ATTEND Internal Medicine
DX: R22.32 Localized swelling, mass and lump, left upper limb (principal)

== ENCOUNTER → 2021-02-18 | Outpatient (CLI) | payer OTHER | LOC: M RAD 10:46 | PROVIDERS: ATTEND Internal Medicine | DX: F17.210 Nicotine dependence, cigarettes, uncomplicated (principal) ==

== ENCOUNTER → 2021-03-09 | Outpatient (CLI) | payer OTHER ==
--- NOTE | 2021-03-09 19:56 | REP ---
INDICATION: LOCALIZED SWELLING, MASS AND LUMP, UNSPECIFIED COMPARISON: None. TECHNIQUE: PA and lateral. FINDINGS: The mediastinum and cardiac silhouette are normal. The lung knight are clear and without acute consolidation, effusion, or pneumothorax. The skeletal structures are intact and normal. IMPRESSION: No acute cardiopulmonary process. <Electronically signed by David Hollis > 03/09/211951
== END ==
LOC: M RAD 13:14
PROVIDERS: ATTEND Internal Medicine
DX: R22.9 Localized swelling, mass and lump, unspecified (principal)

== ENCOUNTER → 2021-09-30 | Outpatient (CLI) | payer BC, OTHER | LOC: M LABSMTC 09:10 | PROVIDERS: ATTEND Anesthesiology | DX: Z01.818 Encounter for other preprocedural examination (principal); Z11.52 Encounter for screening for COVID-19 ==

== ENCOUNTER 2021-10-05 06:59 | Day surgery (SDC) | payer BC, OTHER, SELFPAY ==
[~2021-10-05] VITALS: Ht 172.7 cm; Wt 78.9 kg
[~2021-10-05 06:59] MED LIST changes: +NS 1,000 ML IV ONE
[2021-10-05] MEDS ORDERED: LIDOCAINE 2% 100MG/5ML SDV (FOR ANES.) As Ordered ONE (07:03)
[2021-10-05] MEDS ORDERED: propofoL 200 MG/20 ML VIAL As Ordered ONE (07:03)
[2021-10-05 08:49] VITALS: BP 124/75
== END 2021-10-05 08:51 | disposition home or self-care (01) ==
LOC: M OPP 06:59
PROVIDERS: ATTEND Internal Medicine Gastroenterology
DX: Z12.11 Encounter for screening for malignant neoplasm of colon (principal); K64.0 First degree hemorrhoids; Z88.8 Allergy status to other drugs, medicaments and biological substances

== ENCOUNTER 2024-07-20 21:49 | Emergency (ER) | payer MEDICARE, OTHER ==
[~2024-07-20] VITALS: Ht 172.7 cm; Wt 83.5 kg
[~2024-07-20 21:49] MED LIST changes: -NS 1,000 ML IV ONE
[2024-07-20 21:59] VITALS: TEMP 97
[2024-07-20 22:35] LABS: BASO % 0.3 % (0.0-1.0); EOS # 0.2 10^3/uL (0.0-0.5); EOS % 2.5 % (0.0-3.0); HEMATOCRIT 47.5 % (42.0-52.0); HEMOGLOBIN 15.9 g/dl (13.5-17.5); LYMPH # 1.7 10^3/uL (1.5-5.0); LYMPH % 22.9 % (24.0-44.0); MEAN CORPUSCULAR HEMOGLOBIN 30.5 pg (27.0-33.0); MEAN CORPUSCULAR HGB CONC 33.5 g/dl (32.0-36.5); MONO # 0.6 10^3/uL (0.0-0.8); MONO % 7.8 % (2.0-8.0); NEUTROPHILS # 4.8 10^3/uL (1.5-8.5); NEUTROPHILS % 66.2 % (36.0-66.0); PLATELET COUNT, AUTOMATED 144 10^3/uL (150-450); RED BLOOD COUNT 5.22 10^6/uL (4.30-6.10); WHITE BLOOD COUNT 7.3 10^3/uL (4.0-10.0)
[2024-07-20 22:46] LABS: INR 0.93; PROTHROMBIN TIME 12.8 SECONDS (12.5-14.5)
[2024-07-20 23:58] LABS: LIPASE 39 U/L (12-53)
[2024-07-21 00:01] LABS: ALBUMIN 3.7 G/DL (3.2-5.2); ALKALINE PHOSPHATASE 98 U/L (40-129); ALT/SGPT 26 U/L (7.0-40); AST/SGOT 18 U/L (<34); BILIRUBIN,DIRECT 0.1 MG/DL (<0.4); BILIRUBIN,TOTAL 0.3 MG/DL (0.3-1.2); BLOOD UREA NITROGEN 18 MG/DL (9-23); CALCIUM LEVEL 8.9 MG/DL (8.5-10.1); CARBON DIOXIDE LEVEL 30 MMOL/L (20-31); CHLORIDE LEVEL 104 MMOL/L (98-107); CK-MB VALUE MASS < 1.0 NG/ML (<3.6); CPK CREATINE PHOSPHOKINASE 86 U/L (46-171); CREATININE FOR GFR 1.07 MG/DL (0.70-1.30); GLOMERULAR FILTRATION RATE > 60.0 (>56); GLUCOSE, FASTING 96 MG/DL (60-100); MB/CK RELATIVE INDEX 1.16 (< OR =4); POTASSIUM SERUM 4.2 MMOL/L (3.5-5.1); SODIUM LEVEL 141 MMOL/L (136-145); TOTAL PROTEIN 6.5 G/DL (5.7-8.2)
[2024-07-21] MEDS: DERMABOND TOPICAL SKIN ADHESIVE TOP ONE (00:29)
[2024-07-21] MEDS: BACITRACIN OINTMENT 30GM TUBE TOP ONE (00:29)
[2024-07-21] MEDS: KETOROLAC 30 MG/ML 1ML VIAL IV ONE (00:30)
[2024-07-21 02:12] VITALS: BP 121/76; O2SAT 95
[2024-07-21] MEDS ORDERED: HOLTER MONITOR XX (02:13)
== END 2024-07-21 02:30 | disposition home or self-care (01) ==
LOC: M ED 21:49
DX: R55 Syncope and collapse (principal); F17.210 Nicotine dependence, cigarettes, uncomplicated; Z88.8 Allergy status to other drugs, medicaments and biological substances
CPT/HCPCS: 70450; 71045; 72125; 72131; 80053; 82248; 82550; 82553; 83690; 84484; 85025; 85610; 93005; 93041; 94760; 96374; 99285; J1885